=== PATIENT | male | born 1980 | race Caucasian/White ===

== ENCOUNTER 2016-12-01 13:59 | Emergency (ER) | payer OTHER ==
[~2016-12-01] VITALS: Ht 175.3 cm; Wt 82.2 kg
[2016-12-01 14:38] VITALS: BP 144/96
== END 2016-12-01 14:38 | disposition home or self-care (01) ==
LOC: ED 13:59
DX: L02.414 Cutaneous abscess of left upper limb (principal); L02.413 Cutaneous abscess of right upper limb; R03.0 Elevated blood-pressure reading, without diagnosis of hypertension

== ENCOUNTER 2017-06-26 23:34 | Emergency (ER) | payer OTHER ==
[~2017-06-26] VITALS: Ht 175.3 cm; Wt 95.7 kg
[2017-06-26 23:38] VITALS: Ht 175.3 cm; Wt 95.7 kg
[2017-06-27 02:12] VITALS: BP 150/73
== END 2017-06-27 02:12 | disposition home or self-care (01) ==
LOC: ED 23:34
DX: R60.0 Localized edema (principal); M79.89 Other specified soft tissue disorders
CPT/HCPCS: J1885; Q0092

== ENCOUNTER 2017-07-02 23:43 | Emergency (ER) | payer OTHER ==
[~2017-07-02] VITALS: Ht 165.1 cm; Wt 95.2 kg
[2017-07-02 23:47] VITALS: Ht 165.1 cm; Wt 95.2 kg
[2017-07-03 02:20] VITALS: BP 155/81
== END 2017-07-03 02:20 | disposition home or self-care (01) ==
LOC: ED 23:43
DX: R60.0 Localized edema (principal); L03.116 Cellulitis of left lower limb; F17.210 Nicotine dependence, cigarettes, uncomplicated; Z71.6 Tobacco abuse counseling
CPT/HCPCS: 99406